=== PATIENT | male | born 1970 | race Hispanic/Latino ===

== ENCOUNTER 2019-10-26 05:40 | Outpatient (CLI) | payer BC, OTHER ==
[2019-10-26 14:04] LABS: #Eosinphils 0.2 thou/uL (0.0-0.7); #Lymphocytes 1.5 thou/uL (1.20-3.40); #Monocytes 0.6 thou/uL (0.11-0.59); #Neutrophils 4.8 thou/uL (1.40-6.50); %Basophils 0.5 % (0.0-1.0); %Eosinophils 3.3 % (0.0-10.0); %Monocytes 8.8 % (0.0-10.0); %Neutrophils 66.4 % (42.0-75.0); Hemoglobin 15.2 g/dL (14.0-18.0); Mean Corpuscular Hemoglobin 31.5 pg (27.0-31.0); Mean Corpuscular Volume 95.5 fL (78.0-98.0); Mean Platelet Volume 7.3 fL (7.4-10.4); Platelet Count 300 thou/uL (130-400); Red Blood Cell (RBC) Count 4.82 mill/uL (4.70-6.10); White Blood Cell (WBC) Count 7.3 thou/uL (4.8-10.8)
[2019-10-26 14:41] LABS: Hemoglobin A1c 6.1 % (4.0-6.0)
[2019-10-26 14:47] LABS: Anion Gap 16 mmol/L (10-20); BUN (Urea Nitrogen) 12 mg/dL (8.4-25.7); Calc. Creatinine Clearance 0 mL/min (70-130); Calcium 9.3 mg/dL (7.8-10.44); Carbon Dioxide 26 mmol/L (22-29); Chloride 102 mmol/L (98-107); Estimated GFR-MDRD 71; Glucose 98 mg/dL (70-105); Potassium 4.5 mmol/L (3.5-5.1); Sodium 139 mmol/L (136-145)
[2019-10-27 14:46] LABS: SARS-CoV-2 MS2 Positive; SARS-CoV-2 N Gene Negative; SARS-CoV-2 S Gene Negative; SARS-CoV-2 by NAA Not Detected (NotDetected); SARS-CoV-2 orf1ab Negative
--- NOTE | 2019-10-29 15:38 | EKG ---
Test Reason : PREOP Blood Pressure : / mmHG Vent. Rate : 056 BPM Atrial Rate : 056 BPM P-R Int : 154 ms QRS Dur : 090 ms QT Int : 422 ms P-R-T Axes : 056 053 051 degrees QTc Int : 407 ms Sinus bradycardia Otherwise normal ECG When compared with ECG of 26-OCT-2019 09:58, (Unconfirmed) Previous ECG has undetermined rhythm, needs review Confirmed by REYNA DONALD M.D. ([id number]) on 10/29/2019 3:38:13 PM Referred By: Alem ECHEVERRIA Confirmed By:REYNA DONALD M.D.
== END 2019-10-26 05:41 | disposition home or self-care (01) ==
LOC: LABBT 05:40
PROVIDERS: ATTEND Specialist
DX: Z01.818 Encounter for other preprocedural examination (principal); R15.9 Full incontinence of feces; Z20.828 Contact with and (suspected) exposure to other viral communicable diseases
CPT/HCPCS: 80048; 83036; 85025; 87635; 93005; 93010; U0003

== ENCOUNTER 2019-10-26 09:30 | Inpatient (IN) | payer BC ==
[2019-10-26 12:58] VITALS: BMI 27.2
[2019-10-30] MEDS ORDERED: Ketorolac Tromethamine 30 MG/ML VIAL ONE (06:03)
[2019-10-30] MEDS ORDERED: Acetaminophen 500 MG TAB ONE (06:03)
[2019-10-30] MEDS ORDERED: cefOXitin Sodium/Dextrose 2 GM/50 ML BAG ONE (06:03)
[2019-10-30] MEDS ORDERED: Fentanyl 100 MCG/2 ML VIAL ONE ×3 (06:31→07:22)
[2019-10-30] MEDS ORDERED: Midazolam HCl 2 mg/2 ml Vial ONE ×3 (06:31→07:22)
[2019-10-30] MEDS ORDERED: Lidocaine 1% w/Epinephrine 1:100K 20 ML VIAL ONE (06:46)
[2019-10-30] MEDS ORDERED: Bupivacaine 0.25% HCL 30 ML VIAL ONE (06:46)
[2019-10-30] MEDS ORDERED: Ondansetron HCl/PF 4 MG/2 ML Vial IVP PRN (09:31)
[2019-10-30] MEDS ORDERED: Promethazine HCl 25 MG/ML VIAL IM PRN ×2 (09:31→14:13)
[2019-10-30] MEDS ORDERED: Promethazine HCl 25 MG/ML VIAL SLOW IVP PRN (09:31)
[2019-10-30] MEDS ORDERED: Promethazine HCl 25 MG/ML VIAL ONE (09:56)
[2019-10-30] MEDS ORDERED: PROPOFOL 200 MG/20 ML VIAL ONE (13:38)
[2019-10-30] MEDS ORDERED: Glycopyrrolate 0.2 MG/ML 5 ML SYRINGE ONE (13:38)
[2019-10-30] MEDS ORDERED: Bupivacaine HCl 0.5%/Epinephrine 1:200,000/PF 30 ml Vial ONE (13:38)
[2019-10-30] MEDS ORDERED: Dexamethasone 20 MG/5 ML VIAL ONE (13:38)
[2019-10-30] MEDS ORDERED: Ondansetron PF 4 MG/2 ML Vial ONE (13:38)
[2019-10-30] MEDS ORDERED: Rocuronium Bromide 10 MG/ML (10ML VIAL) ONE (13:38)
[2019-10-30] MEDS ORDERED: Lidocaine 1% PF 5 ML VIAL ONE (13:38)
[2019-10-30] MEDS ORDERED: Morphine 4 MG/ML VIAL SLOW IVP PRN (14:13)
[2019-10-30] MEDS ORDERED: Morphine 2 MG/ML VIAL SLOW IVP PRN (14:13)
[2019-10-30] MEDS ORDERED: hydrALAZINE 20 MG/ML VIAL SLOW IVP PRN (14:13)
[2019-10-30] MEDS ORDERED: Ondansetron PF 4 MG/2 ML Vial IVP PRN (14:13)
[2019-10-30] MEDS ORDERED: Morphine 4 MG/ML VIAL ONE (14:17)
[2019-10-30] MEDS: Ketorolac Tromethamine 30 MG/ML VIAL IVP SCH ×2 (17:09→23:42)
[2019-10-30] MEDS: D5 1/2 NS w/20 mEq KCL 1,000 ML IV SCH ×2 (17:10→23:43)
[2019-10-30] MEDS: Enoxaparin Sodium 40 MG/0.4 ML SYRINGE SC SCH (22:09)
[2019-10-30] MEDS: Famotidine/PF 20 mg/2ml Vial SLOW IVP SCH (22:10)
[2019-10-30] MEDS: Famotidine 20 MG TAB PO SCH (22:11)
[2019-10-30] MEDS: clonazePAM 1 MG TAB PO PRN (23:43)
[2019-10-31] MEDS: Ketorolac Tromethamine 30 MG/ML VIAL IVP SCH ×4 (05:10→23:34)
[2019-10-31 05:57] LABS: #Lymphocytes 2.3 thou/uL (1.20-3.40); #Monocytes 1.1 thou/uL (0.11-0.59); #Neutrophils 10.5 thou/uL (1.40-6.50); %Basophils 0.1 % (0.0-1.0); %Eosinophils 0.3 % (0.0-10.0); %Lymphocytes 16.8 % (21.0-51.0); %Monocytes 7.5 % (0.0-10.0); %Neutrophils 75.3 % (42.0-75.0); Hemoglobin 13.2 g/dL (14.0-18.0); Mean Corpuscular Hemoglobin 30.5 pg (27.0-31.0); Mean Corpuscular Volume 95.3 fL (78.0-98.0); Mean Platelet Volume 7.3 fL (7.4-10.4); Platelet Count 284 thou/uL (130-400); Red Blood Cell (RBC) Count 4.33 mill/uL (4.70-6.10); White Blood Cell (WBC) Count 13.9 thou/uL (4.8-10.8)
[2019-10-31 06:07] LABS: Anion Gap 12 mmol/L (10-20); BUN (Urea Nitrogen) 8 mg/dL (8.4-25.7); Calc. Creatinine Clearance 97 mL/min (70-130); Calcium 8.5 mg/dL (7.8-10.44); Carbon Dioxide 24 mmol/L (22-29); Chloride 105 mmol/L (98-107); Estimated GFR-MDRD 71; Glucose 123 mg/dL (70-105); Potassium 4.6 mmol/L (3.5-5.1); Sodium 136 mmol/L (136-145)
[2019-10-31] MEDS ORDERED: HYDROcodone/Acetaminophen 7.5/325 mg Tablet PO PRN (07:49)
[2019-10-31] MEDS ORDERED: D5 1/2 NS w/20 mEq KCL 1,000 ML IV SCH (08:30)
[2019-10-31] MEDS: Escitalopram Oxalate 10 mg Tablet PO SCH (09:27)
[2019-10-31] MEDS: Famotidine 20 MG TAB PO SCH ×2 (09:27→20:33)
[2019-10-31] MEDS: clonazePAM 1 MG TAB PO PRN (10:15)
[2019-10-31] MEDS: Famotidine/PF 20 mg/2ml Vial SLOW IVP SCH (10:15)
[2019-10-31] MEDS: D5 1/2 NS w/20 mEq KCL 1,000 ML IV SCH (10:15)
--- NOTE | 2019-10-31 13:45 | PRG ---
DATE OF SERVICE: 10/30/2019 SUBJECTIVE: Mr. Tsang is postoperative day #1 from ileostomy creation and laparoscopic appendectomy. He has no complaints. He has minimal pain. He is ambulating well. He is tolerating clear and full liquid diet. He has excellent ostomy output. OBJECTIVE: VITAL SIGNS: He is afebrile. Vital signs within normal limits. His pulse is currently in the 50s and regular. Blood pressure is normal. Urine output is excellent. LUNGS: Clear to auscultation. ABDOMEN: Soft, nontender, nondistended. Laparoscopic incision sites healing nicely. Right-sided ileostomy is viable and functioning well. EXTREMITIES: Unremarkable. LABORATORY DATA: CBC and basic metabolic panel are reviewed and are unremarkable for postoperative day #1. ASSESSMENT: The patient is doing very well with resumption of bowel function per ileostomy. We will advance his diet up to a regular diet and discontinue his IV fluids. I would anticipate discharge tomorrow. I will consult Wound Care to help with arranging ostomy supplies. Job ID: [id number]
[2019-10-31] MEDS: Enoxaparin Sodium 40 MG/0.4 ML SYRINGE SC SCH (20:33)
[2019-11-01] MEDS: Ketorolac Tromethamine 30 MG/ML VIAL IVP SCH ×3 (05:15→11:44)
--- NOTE | 2019-11-01 06:11 | PDOC.GSPN ---
Surgery Progress Note: Subj - Subjective Narrative: Mr. Tsang is a 49 year old male POD 2 ileostomy creation and laparoscopic appendectomy. He was lying in bed during the visit this morning and was in no acute distress. He endorsed a pain level of 7/10 around his ileostomy site managed well with morphine and PO pain medications. He had no other concerns at this time. He was able to tolerate his regular diet well last night and did not have any nausea or vomiting associated with it. He has been walking frequently and drinking fluids regularly. He mentioned that he was able to sleep 6 hours overnight and felt much better than yesterday. He has been able to urinate independently. He has been using his incentive spirometery every few hours. Wound care visited his yesterday but he did not get a chance to talk to them and has several questions for them. He denies any dysuria, chest pain, shortness of breath, dizziness, headaches, and swelling. His vitals stayed stable overnight. Surgery Progress Note: Obj - Vital signs Vital signs: Vital Signs - Most Recent Temp Pulse Resp BP Pulse Ox 97.9 F 61 16 108/70 97 10/31/19 23:30 10/31/19 23:30 10/31/19 23:30 10/31/19 23:30 10/31/19 23:30 - Physical Exam General: no distress, moderate pain (7/10) Neck: no bruits, no dasahwn distention Cardiovascular: regular rate and rhythm Respiratory: clear to auscultation, normal expansion, normal respiratory effort, breath sounds present Abdomen: soft, nondistended, positive bowel sounds (ileostomy site clean and intact, ostomy draining well), appropriately tender Wound: healing well (incision sites healing well), ostomy/colostomy (rt sided ostomy intact, pink stoma, draining well) Surgery Progress Note: Results - Labs Result Diagrams: 10/31/19 05:02 10/31/19 05:02 Surgery Progress Note: A/P - Problem (1) Status post ileostomy Current Visit: Yes Code(s): Z93.2 - ILEOSTOMY STATUS Status: Acute - Plan Plan: Mr. Tsang is doing well overall. He is able to ambulate, tolerate regular diet, and urinate. We will ensure that he has a chance to ask wound care any questions he has and then discharge him later today.
[2019-11-01] MEDS: HYDROcodone/Acetaminophen 7.5/325 mg Tablet PO PRN ×2 (06:13→17:38)
[2019-11-01] MEDS: Escitalopram Oxalate 10 mg Tablet PO SCH (09:19)
[2019-11-01] MEDS: Famotidine 20 MG TAB PO SCH (09:19)
[2019-11-01] MEDS: clonazePAM 1 MG TAB PO PRN (09:20)
[2019-11-01 16:08] VITALS: BP 141/79; TEMP 98
--- NOTE | 2019-11-03 20:23 | OP ---
DATE OF PROCEDURE: 10/30/2019 PREOPERATIVE DIAGNOSIS: Fecal incontinence. POSTOPERATIVE DIAGNOSIS: Fecal incontinence. PROCEDURES PERFORMED: Laparoscopic assisted creation of ileostomy, laparoscopic appendectomy. ANESTHESIA: General endotracheal. INDICATIONS FOR PROCEDURE: The patient is a 49-year-old male. He has a recent history of rectal cancer, for which he underwent an apparently very low anterior resection with proximal diverting ileostomy. This operation was performed robotically. When his ileostomy was reversed, he was never able to regain any continence due to what appears to be a denervated sphincter complex. He has been miserable secondary to his incontinence and he therefore presents at this time requesting to have his ileostomy back. After lengthy conversations, at which time, I recommended a laparoscopic colostomy instead of an ileostomy, he is certain that he would prefer to have the ileostomy and I have agreed to proceed with this procedure. DESCRIPTION OF OPERATION: Informed consent was obtained. The patient was taken to the operating room, where general anesthesia was obtained with the patient in supine position. Abdomen was prepped with ChloraPrep and draped in sterile fashion. Local anesthetic was infiltrated using a mixture of 1% lidocaine with epinephrine and 0.25% Marcaine. Three separate 5 mm incisions were created on the left lateral abdominal wall. Pneumoperitoneum was established and 5 mm ports were placed at each incision site. The patient had remarkably few adhesions within the abdominal cavity. There were some omental adhesions up to the posterior aspect of the closed ileostomy site that were mobilized easily. The remainder of the omentum was easily retracted superiorly. There were interloop adhesions at the area of the prior ileostomy as expected. I carefully mobilized the ileum both with the interloop adhesions and adhesions to the lateral abdominal wall until this was fully mobile. It appeared that the prior ileostomy closure was only about 10 cm from the ileocecal valve. I felt, however, that there was adequate distal ileum to allow me to mobilize that, divided and created an ileostomy. No time was spent investigating the pelvis. After I identified the area of bowel that I wanted to externalize and confirm the orientation, the bowel was grasped with a grasper at the level of the mesentery. I then created ileostomy open in the right abdomen. He requested the exact same place as his prior ileostomy. A circular incision was created and dissection carried down to the fascia, which was opened to gain access into the abdominal cavity. Because of the scarring from his prior surgery, I was not able to split the rectus muscles in the typical fashion. It had also been noted internally that the posterior fascia appeared to have not been closed at the time of his ileostomy closure. Once the ileostomy opening was appropriately dilated, the ileum was passed through this opening and grasped. Orientation was ascertained. The bowel was divided with a single fire of the ADITI 75 stapler. The distal segment was returned to the abdominal cavity and the proximal segment was held in place externally. The three 5 mm port sites were closed with 4-0 Monocryl subcuticular suture and Dermabond was placed externally. Not mentioned earlier is that during the course of mobilization of the ileum, the appendix was draped across the distal ileum on the inferior aspect. In order to mobilize the appendix off the ileum, I had to grasp it in such a fashion that I felt it would be more appropriate to proceed with an appendectomy. Therefore, the appendix was removed between PDS Endoloop ties after the mesoappendix was taken down appropriately. Attention was then turned to the ileostomy. I placed four quadrant sutures between the ileum and the anterior fascia with 3-0 silk suture. The staple line was removed and the ileum was everted in the usual fashion using four quadrant eversion sutures using 3-0 Vicryl. I then placed a series of full-thickness Vicryl sutures between the bowel wall and the skin. Ileostomy appliance was applied. There were no complications. Blood loss was negligible. The patient tolerated the procedure well and was taken to recovery room in stable condition. Job ID: [id number]
== END 2019-11-01 18:07 | disposition home or self-care (01) | DRG 331 ==
LOC: SURG A 10-30 05:52 → SURG B 10-30 14:01
PROVIDERS: ADMIT Specialist; ATTEND Specialist
PROC: 0D1B4Z4 Bypass Ileum to Cutaneous, Percutaneous Endoscopic Approach (ICD-10-PCS; principal; 2019-10-30)
PROC: 0DTJ4ZZ Resection of Appendix, Percutaneous Endoscopic Approach (ICD-10-PCS; 2019-10-30)
DX: R15.9 Full incontinence of feces (principal); F41.9 Anxiety disorder, unspecified; Z79.899 Other long term (current) drug therapy; Z98.890 Other specified postprocedural states; Z93.2 Ileostomy status; Z85.048 Personal history of other malignant neoplasm of rectum, rectosigmoid junction, and anus; Z92.21 Personal history of antineoplastic chemotherapy; Z92.3 Personal history of irradiation
CPT/HCPCS: 36415; 80048; 85025; 88304; J0670; J0694; J1100; J1650; J1885; J2250; J2270; J2405; J2550; J2704; J3010; J3480; S0020; S0028